=== PATIENT | male | born 1980 | race Caucasian/White ===

== ENCOUNTER 2018-03-12 15:07 | Emergency (ER) | payer SELFPAY ==
[~2018-03-12] VITALS: Ht 167.6 cm; Wt 87.0 kg
[2018-03-12] MEDS ORDERED: IBUPROFEN 600MG TABLET PO ONE (18:00)
[2018-03-12 19:17] VITALS: BP 137/81
== END 2018-03-12 19:20 | disposition home or self-care (01) ==
LOC: ER 15:07
DX: S09.8XXA Other specified injuries of head, initial encounter (principal); M25.511 Pain in right shoulder; M25.552 Pain in left hip; V49.49XA Driver injured in collision with other motor vehicles in traffic accident, initial encounter; Y93.89 Activity, other specified; Y92.89 Other specified places as the place of occurrence of the external cause; Y99.8 Other external cause status
CPT/HCPCS: 73030; 73502; 99284